=== PATIENT | female | born 1985 ===

== ENCOUNTER 2017-02-24 12:27 | Emergency (ER) | payer OTHER, SELFPAY ==
[2017-02-24 12:48] VITALS: BMI 21.9
[2017-02-24] MEDS ORDERED: Sodium Chloride 0.9% 1,000 ML IV STA (13:36)
--- NOTE | 2017-02-24 13:36 | ED PDOC ---
HPI: Female Pain Time Seen by Provider: 02/24/17 12:50 Chief Complaint (Nursing): Female Genitourinary Chief Complaint (Provider): Pelvic pain, LMP 12/07/16 History Per: Patient History/Exam Limitations: no limitations Onset/Duration Of Symptoms: Days Current Symptoms Are (Timing): Still Present Additional Complaint(s): Pt reports pelvic pain for 1 week approx 9 weeks gestation. PT states she was seen by our clinic and [facility] because she is high risk (DM). Pt states she has f.u after US 3 days ago today and was told there was no heart beat although she was measuring 9 weeks (US reports reviewed) . Pt states she was referred to [facility] and given address and phone number to schedule D and C. Pt states she does not beleive there is no heart beat so she came to ER for "second opinion". Pt is Past Medical History Reviewed: Historical Data, Nursing Documentation, Vital Signs Vital Signs: Last Vital Signs Temp 98.4 F 02/24/17 12:49 Pulse 77 02/24/17 12:49 Resp 18 02/24/17 12:49 BP 95/51 L 02/24/17 12:49 Pulse Ox 96 02/24/17 12:49 - Medical History PMH: Diabetes - Surgical History Surgical History: No Surg Hx - Family History Family History: States: No Known Family Hx - Living Arrangements Living Arrangements: With Family - Social History Current smoker - smoking cessation education provided: No Alcohol: None Drugs: Denies - Home Medications Home Medications: Ambulatory Orders Medication Instructions Recorded Insulin Human (NPH)/Regular 25 unit SC BID 02/24/17 [Novolin 70/30 (70/30 units/ml) 10 ml] Vit Calc,Iron,Folic 1 tab PO DAILY 02/24/17 [ Vitamins] - Allergies Allergies/Adverse Reactions: Allergies Allergy/AdvReac Type Severity Reaction Status Date / Time No Known Allergies Allergy Verified 02/24/17 12:56 Review of Systems ROS Statement: Except As Marked, All Systems Reviewed And Found Negative Genitourinary Female: Positive for: Pelvic Pain Physical Exam - Reviewed Nursing Documentation Reviewed: Yes Vital Signs Reviewed: Yes - Physical Exam Appears: Positive for: Well, Non-toxic, No Acute Distress Head Exam: Positive for: ATRAUMATIC, NORMAL INSPECTION, NORMOCEPHALIC Skin: Positive for: Normal Color, Warm, DRY Eye Exam: Positive for: Normal appearance ENT: Positive for: Normal ENT Inspection Neck: Positive for: Normal, Painless ROM Cardiovascular/Chest: Positive for: Regular Rate, Rhythm Respiratory: Positive for: Normal Breath Sounds. Negative for: Accessory Muscle Use, Respiratory Distress Gastrointestinal/Abdominal: Positive for: Normal Exam, Bowel Sounds, Soft. Negative for: Tenderness Back: Positive for: Normal Inspection Extremity: Positive for: Normal ROM Neurologic/Psych: Positive for: Alert, Oriented - Laboratory Results Result Diagrams: 02/24/17 13:45 02/24/17 13:45 - ECG O2 Sat by Pulse Oximetry: 96 Medical Decision Making Medical Decision Making: Blood type (+) (-) heart activity on US> F/u with [facility] for D and C or in [facility]. Disposition - Clinical Impression Clinical Impression: demise - Patient ED Disposition Is Patient to be Admitted: No Counseled Patient/Family Regarding: Diagnosis, Need For Followup - Disposition Referrals: [facility] [Outside] Disposition: Routine/Home Disposition Time: 17:21 Condition: GOOD Instructions: Spontaneous Miscarriage (ED), Dilation and Curettage (GEN) Print Language: BURUNDI[place]
[2017-02-24 13:54] LABS: HEMATOCRIT 37.8 % (34.0-47.0); MEAN CELL VOLUME 94.6 fl (81.0-99.0); MEAN CORPUSCULAR HEMOGLOBIN 32.3 pg (27.0-31.0); MEAN CORPUSCULAR HGB CONC 34.2 g/dL (33.0-37.0); RED CELL DISTRIBUTION WIDTH 13.3 % (11.5-14.5); WHITE BLOOD COUNT 9.4 K/uL (4.8-10.8)
[2017-02-24 14:05] LABS: ALB/GLOB RATIO 1.2 (1.0-2.1); ALKALINE PHOSPHATASE 52 U/L (38-126); ALT/SGPT 28 U/L (9-52); AST/SGOT 24 U/L (14-36); BILIRUBIN,TOTAL 0.3 mg/dl (0.2-1.3); BLOOD UREA NITROGEN 10 mg/dl (7-17); CALCIUM 9.3 mg/dL (8.4-10.2); CARBON DIOXIDE 24 mmol/L (22-30); CHLORIDE 104 mmol/L (98-107); GFR AFRICAN-AMERICAN > 60; GLUCOSE,RANDOM 69 mg/dL (65-105); POTASSIUM 4.1 MMOL/L (3.6-5.0); SODIUM 136 mmol/l (132-148); TOTAL PROTEIN 7.5 G/DL (6.3-8.2)
[2017-02-24 14:31] LABS: PARTIAL THROMBOPLASTIN TIME 25.7 SECONDS (23.3-32.5)
[2017-02-24 15:38] LABS: RBC URINE 3 /hpf (0-3); URINE BACTERIA OCC (<OCC); URINE BILIRUBIN NEGATIVE (NEGATIVE); URINE BLOOD NEGATIVE (NEGATIVE); URINE COLOR YELLOW (YELLOW); URINE GLUCOSE (UA) NEG (Normal); URINE KETONE NEGATIVE (NEGATIVE); URINE LEUKOCYTE ESTERASE SMALL Leu/uL (Negative); URINE PROTEIN NEGATIVE (NEGATIVE); URINE UROBILINOGEN 0.2-1.0 mg/dL (0.2-1.0); WBC URINE 10 /hpf (0-5)
--- NOTE | 2017-02-24 16:42 | US ---
HISTORY: Abdominal pain. . COMPARISON: No prior TECHNIQUE: Transvaginal sonographic evaluation of the pelvis performed. FINDINGS: UTERUS: Uterus is anteverted measuring approximately 10.1 x 9.4 x 7.7 cm cm. . There is a in intrauterine gestational sac. Measurements: Gestational sac: MSD = 4.3 cm = 9 weeks 5 days Yolk sac: 0.57 cm pole: 2.6 cm Heart motion: Cardiac activity not detected Average ultrasound age: 9 weeks 4 days +/-0 weeks 5 days Collectively these findings are consistent with nonviable fetus. Followup serial serum beta HCG and serial pelvic ultrasound Cervix is closed. No evidence of free fluid seen in the cul de sac. Right ovary measures 3.6 x 3.5 x 2.7 cm and contains a complex cyst measuring 2.1 x 1.9 x 1.7 cm. Right ovary exhibits arterial flow. Left ovary measures 2.8 x 2.9 x 1.3 cm and also exhibits arterial flow. Impression: Living intrauterine gestation estimated at approximately 9 weeks 4 days +/-0 weeks 5 days. No cardiac activity detected. Findings consistent with nonviable fetus. . Followup serial serum beta HCG and serial pelvic ultrasound.
[2017-02-24 17:46] VITALS: BP 97/67; PULSE 86; RESP 16; TEMP 98.3; O2SAT 100
== END 2017-02-24 17:50 | disposition home or self-care (01) ==
LOC: H.ER 12:27
DX: O20.0 Threatened abortion (principal); O26.891 Other specified pregnancy related conditions, first trimester; Z3A.09 9 weeks gestation of pregnancy; E11.9 Type 2 diabetes mellitus without complications; Z79.4 Long term (current) use of insulin; R10.2 Pelvic and perineal pain; O23.40 Unspecified infection of urinary tract in pregnancy, unspecified trimester

== ENCOUNTER 2017-11-15 11:38 | Emergency (ER) | payer OTHER ==
--- NOTE | 2017-11-15 13:22 | ED PDOC ---
Hyperglycemia/Hypoglycemia Time Seen by Provider: 11/15/17 12:32 Chief Complaint (Nursing): High Blood Sugar Chief Complaint (Provider): Fever History Per: Patient : The patient does not have any of the infectious symptoms listed except for those marked. Additional Complaint(s): To ED, sent from [facility] for evaluation of fever x 2 days and ketones in urine. Patient c/o bodyaches, congestion, cough. Past Medical History Reviewed: Nursing Documentation, Vital Signs Vital Signs: Last Vital Signs Temp 98.4 F 11/15/17 12:12 Pulse 84 11/15/17 12:12 Resp 16 11/15/17 12:12 BP 90/58 L 11/15/17 12:12 Pulse Ox 98 11/15/17 12:12 - Medical History PMH: No Chronic Diseases - Surgical History Surgical History: No Surg Hx - Family History Family History: States: No Known Family Hx - Social History Current smoker - smoking cessation education provided: No Alcohol: Social Drugs: Denies - Home Medications Home Medications: Ambulatory Orders Medication Instructions Recorded Insulin Human (NPH)/Regular 25 unit SC BID 02/24/17 [Novolin 70/30 (70/30 units/ml) 10 ml] Vit Calc,Iron,Folic 1 tab PO DAILY 02/24/17 [ Vitamins] Cephalexin [Keflex] 500 mg PO BID #14 capsule 02/27/17 Cephalexin [cephalexin] 500 mg PO BID #14 cap 11/15/17 Oseltamivir [Tamiflu] 75 mg PO BID 5 Days cap 11/15/17 - Allergies Allergies/Adverse Reactions: Allergies Allergy/AdvReac Type Severity Reaction Status Date / Time No Known Allergies Allergy Verified 02/24/17 12:56 Review of Systems ROS Statement: Except As Marked, All Systems Reviewed And Found Negative ENT: Positive for: Nose Congestion Respiratory: Positive for: Cough Physical Exam - Reviewed Nursing Documentation Reviewed: Yes Vital Signs Reviewed: Yes - Physical Exam Appears: Positive for: Well, Non-toxic, No Acute Distress Head Exam: Positive for: ATRAUMATIC, NORMAL INSPECTION, NORMOCEPHALIC Skin: Positive for: Normal Color, Warm, DRY Eye Exam: Positive for: EOMI, Normal appearance, PERRL ENT: Positive for: Normal ENT Inspection Neck: Positive for: Normal, Painless ROM Cardiovascular/Chest: Positive for: Regular Rate, Rhythm Respiratory: Positive for: CNT, Normal Breath Sounds Gastrointestinal/Abdominal: Positive for: Normal Exam, Bowel Sounds, Soft Back: Positive for: Normal Inspection Extremity: Positive for: Normal ROM Neurologic/Psych: Positive for: Alert, Oriented - Laboratory Results Result Diagrams: 11/15/17 14:09 11/15/17 14:09 - ECG O2 Sat by Pulse Oximetry: 98 Medical Decision Making Medical Decision Making: IV access established and treatment initiated with IVF, Toradol for pain and Zofran for nausea Labs resulted and reviewed with Pt who demonstrated full understanding IV Rocephin administered for UTI Pt on re-eval reports feeling greatly improved Disposition - Clinical Impression Clinical Impression: Pyelonephritis, Flu-like symptoms - Patient ED Disposition Is Patient to be Admitted: No - Disposition Disposition: Routine/Home Disposition Time: 17:00 Condition: STABLE Prescriptions: Cephalexin [cephalexin] 500 mg PO BID #14 cap Oseltamivir [Tamiflu] 75 mg PO BID 5 Days cap Instructions: Influenza (ED), Acute Pyelonephritis (ED) Forms: [employer] ([place]), [facility] ED School/Work Excuse Print Language: [place]
[2017-11-15] MEDS ORDERED: Lactated Ringer's 1,000 ML IV SCH (13:30)
[2017-11-15 14:18] LABS: BASO % 0.3 % (0.0-2.0); EOS # 0.1 K/uL (0.0-0.7); EOS % 0.9 % (0.0-4.0); HEMOGLOBIN 13.8 g/dL (12.0-16.0); LYMPH # 2.6 K/uL (1.0-4.3); LYMPH % 31.9 % (20.0-40.0); MEAN CELL VOLUME 94.1 fl (81.0-99.0); MEAN CORPUSCULAR HEMOGLOBIN 31.2 pg (27.0-31.0); MEAN CORPUSCULAR HGB CONC 33.2 g/dL (33.0-37.0); MEAN PLATELET VOLUME 10.3 fl (7.2-11.7); MONO # 0.5 K/uL (0.0-0.8); MONO % 5.9 % (0.0-10.0); NEUT # 4.9 K/uL (1.8-7.0); NRBC % 0.1 % (0.0-0.0); RBC 4.43 Mil/uL (3.80-5.20); RED CELL DISTRIBUTION WIDTH 12.4 % (11.5-14.5)
[2017-11-15 14:26] LABS: ALB/GLOB RATIO 1.2 (1.0-2.1); ALBUMIN 3.8 g/dL (3.5-5.0); ALT/SGPT 36 U/L (9-52); AST/SGOT 19 U/L (14-36); BLOOD UREA NITROGEN 15 mg/dl (7-17); GFR AFRICAN-AMERICAN > 60; GFR NON-AFRICAN AMERICAN > 60
[2017-11-15 16:49] LABS: SQUAMOUS EPITHIAL 17 /hpf (0-5); URINE BACTERIA RARE (<OCC); URINE BILIRUBIN NEGATIVE (NEGATIVE); URINE BLOOD NEGATIVE (NEGATIVE); URINE CLARITY CLOUDY (Clear); URINE COLOR YELLOW (YELLOW); URINE GLUCOSE (UA) >=500 mg/dL (Normal); URINE LEUKOCYTE ESTERASE MOD Leu/uL (Negative); URINE NITRATE NEGATIVE (NEGATIVE); URINE PROTEIN 30 mg/dL (NEGATIVE); URINE UROBILINOGEN 0.2-1.0 mg/dL (0.2-1.0)
[2017-11-15] MEDS ORDERED: cefTRIAXone (Rocephin) 1 gm Inj ONE (17:09)
[2017-11-15 17:56] VITALS: BP 122/67; PULSE 76; RESP 18; TEMP 98.3
[2017-11-23 22:58] VITALS: O2SAT 98
== END 2017-11-15 17:56 | disposition home or self-care (01) ==
LOC: H.ER 11:38 → MERGE 11:38 → H.ER 17:56
DX: J11.1 Influenza due to unidentified influenza virus with other respiratory manifestations (principal)
CPT/HCPCS: 71046; 80053; 81003; 81025; 85025; 96374; 99283; J0696; J1885; J2405; J7120